=== PATIENT | female | born 1980 | race Hispanic/Latino ===

== ENCOUNTER → 2024-08-09 09:07 | Outpatient (REF) | payer SELFPAY | LOC: CLINIC 09:07 | PROVIDERS: ATTENDING PHYSICIAN Student in an Organized Health Care Education/Training Program | DX: M25.511 Pain in right shoulder (principal); M25.531 Pain in right wrist | CPT/HCPCS: 73030; 73110 ==

== ENCOUNTER 2024-09-30 11:27 | Emergency (ER) | payer SELFPAY ==
[2024-09-30 11:29] VITALS: BP 137/90
[2024-09-30 11:49] LABS: % Basophils 0.5 % (0-2); % Eosinophils 1.1 % (0-6); % Immature Granulocytes 0.2 % (0-0.5); % Lymphocytes 27.7 % (20.5-51.1); % Monocytes 5.7 % (1.7-9.3); % Neutrophils 64.8 % (42.2-75.2); Absolute Eosinophils 0.1 10^3/uL (0-0.7); Absolute Lymphocytes 1.7 10^3/uL (1.2-3.4); Absolute Monocytes 0.4 10^3/uL (0.1-0.6); Hemoglobin 13.6 g/dL (12.0-16.0); Mean Corp Hgb Conc. 34.9 g/dL (33.0-37.0); Mean Corpuscular Hgb 31.3 pg (27.0-31.0); Mean Corpuscular Volume 89.9 fL (81.0-99.0); Mean Platelet Volume 9.3 fL (7.4-10.4); Nucleated Red Blood Cells % 0 %; Platelet Count 320 10^3/uL (130-400); Red Blood Cell Count 4.34 10^6/uL (4.20-5.40); Red Cell Dist. Width 12.8 % (11.5-14.5); White Blood Cell Count 6.1 10^3/uL (4.8-10.8)
[2024-09-30 12:03] LABS: HCG, Serum Qualitative Screen Negative
[2024-09-30 12:06] LABS: ALT (SGPT) 20 U/L (0-35); AST (SGOT) 24 U/L (14-36); Albumin 4.6 g/dl (3.5-5.0); Alkaline Phosphatase 53 U/L (38-126); Blood Urea Nitrogen 13 mg/dl (7-17); Calcium 9.2 mg/dl (8.4-10.2); Carbon Dioxide 24 mmol/L (22-30); Chloride 104 mmol/L (98-107); Glucose 109 mg/dl (70-99); Potassium 4.3 mmol/L (3.5-5.1); Sodium 141 mmol/L (135-145); Total Bilirubin 0.6 mg/dl (0.2-1.3); Total Protein 7.9 g/dl (6.3-8.2); eGFR > 60.00
[2024-09-30 12:17] LABS: Troponin I < 0.012 ng/ml
--- NOTE | 2024-09-30 12:54 | ED.GENMED ---
History of Present Illness
<Mary Dow PA-C - Last Filed: 09/30/24 19:59>
General
Chief Complaint: Abdominal Symptoms
Source: patient
Exam Limitations: none
Time Seen by Provider: 09/30/24 12:52
Nursing documentation reviewed up to this point in time: agreed with
History of Present Illness
History of Present Illness:
44-year-old female with a past medical history of cholecystitis s/p cholecystectomy presents to the emergency department today with concerns of chest pain, headache, and nausea. Patient states that her most bothersome symptom currently is the
headache. Patient states that she has had a similar headache in the past and was treated at a different emergency department. Patient feels the headache in her temples bilaterally. She also notes jaw pain occasionally. She has no jaw pain with
eating. She denies visual disturbances. She states that she does not have a history of migraine disorder. She also notes that she will get intermittent abdominal discomfort when she eats certain foods. She denies fevers, chills, vomiting, diarrhea,
constipation, neck pain, dizziness, lightheadedness. She denies recent head or neck trauma. In terms of patient's chest pain, patient states that this has been going on for the past few weeks and she gets it intermittently, is not related to
exertion, is nonpleuritic, nonpositional. It will relieve without intervention. She states that she currently has it mildly in the middle of her chest. She denies history of GERD. She denies family history of cardiac disease other than high blood
pressure.
Past History
<Mary Dow PA-C - Last Filed: 09/30/24 19:59>
Past History
ED Past Medical History: Other (Kidney stones, cholelithiasis)
ED Past Surgical History: None
Social History
Tobacco: Non-smoker
Alcohol: None
Drug: None
Personal:
Living: with family
Employment: Employed
Family History
Family History: Other (Noncontributory)
Review of Systems
<Mary Dow PA-C - Last Filed: 09/30/24 19:59>
Review of Systems
All Other Systems: ROS reviewed and negative except as documented in HPI and ROS
Phy Exam
<Mary Dow PA-C - Last Filed: 09/30/24 19:59>
Physical Exam
Physical Exam:
General: Patient is well appearing and in no acute distress; non-toxic
Skin: Warm and dry, no rashes or lesions
Head: Normocephalic, atraumatic
Eyes: Sclera non-icteric. EOMs intact.
Cardiac: Regular rate and rhythm, no murmurs. No tenderness to palpation of the external chest wall.
Peripheral Vascular: No lower extremity swelling or edema
Pulm: Normal respiratory effort, no wheezes, rales, or rhonchi
Abdomen: No abdominal tenderness to palpation
Musculoskeletal: 5/5 strength in bilateral upper and lower extremities.
Neuro: CN II-XII intact, no focal neurologic deficits.
Psychiatric: Appropriate mood and affect.
Course
<Mary Dow PA-C - Last Filed: 09/30/24 19:59>
Orders/Labs/Results
Orders:
Orders
09/30/24 11:31
Electrocardiogram (*1) Urgent
Reason for Study: Chest Pain
EKG- Treatment ONCE
09/30/24 11:32
Test Result ONCE
09/30/24 11:37
C-Reactive Protein Urgent
Comment: ADD ON
Complete Blood Count/With Diff Urgent
Comprehensive Metabolic Panel Urgent
Erythrocyte Sed Rate Urgent
Comment: ADD ON
HCG, Serum Qualitative Screen Urgent
Lipase Urgent
Comment: ADD ON
Troponin I Urgent
09/30/24 13:16
Add On- LAB Urgent
Tests Added?: lipase
CR Chest - 2 Views Urgent
Comment:
Reason For Exam: chest pressure
09/30/24 13:30
Diphenhydramine [Benadryl] 12.5 mg IV NOW STA
Metoclopramide [Reglan] 10 mg IV NOW STA
09/30/24 14:45
Ketorolac [Toradol] 15 mg IV NOW STA
09/30/24 15:10
Add On- LAB Urgent
Tests Added?: ESR and CRP
Abnormal Lab Results
09/30/24
11:37
MCH 31.3 H pg
(27.0-31.0)
ESR 21 H mm/hour
(0-20)
Glucose 109 H mg/dl
(70-99)
09/30/24 11:37
09/30/24 11:37
Vital Signs
Initial and Last Documented VS:
Initial Vital Signs
Temp Pulse Resp BP Pulse Ox
97.9 F 70 16 137/90 99
09/30/24 11:29 09/30/24 11:29 09/30/24 11:29 09/30/24 11:29 09/30/24 11:29
Last Documented Vital Signs
Temp Pulse Resp BP Pulse Ox
97.9 F 63 16 94/53 97
09/30/24 11:29 09/30/24 16:30 09/30/24 16:30 09/30/24 16:00 09/30/24 16:30
<Julio Cesar Rider, DO - Last Filed: 09/30/24 15:32>
Orders/Labs/Results
Orders:
Orders
09/30/24 11:31
Electrocardiogram (*1) Urgent
Reason for Study: Chest Pain
EKG- Treatment ONCE
09/30/24 11:32
Test Result ONCE
09/30/24 11:37
C-Reactive Protein Urgent
Comment: ADD ON
Complete Blood Count/With Diff Urgent
Comprehensive Metabolic Panel Urgent
Erythrocyte Sed Rate Urgent
Comment: ADD ON
HCG, Serum Qualitative Screen Urgent
Lipase Urgent
Comment: ADD ON
Troponin I Urgent
09/30/24 13:16
Add On- LAB Urgent
Tests Added?: lipase
CR Chest - 2 Views Urgent
Comment:
Reason For Exam: chest pressure
09/30/24 13:30
Diphenhydramine [Benadryl] 12.5 mg IV NOW STA
Metoclopramide [Reglan] 10 mg IV NOW STA
09/30/24 14:45
Ketorolac [Toradol] 15 mg IV NOW STA
09/30/24 15:10
Add On- LAB Urgent
Tests Added?: ESR and CRP
Abnormal Lab Results
09/30/24
11:37
MCH 31.3 H pg
(27.0-31.0)
ESR 21 H mm/hour
(0-20)
Glucose 109 H mg/dl
(70-99)
09/30/24 11:37
09/30/24 11:37
Vital Signs
Initial and Last Documented VS:
Initial Vital Signs
Temp Pulse Resp BP Pulse Ox
97.9 F 70 16 137/90 99
09/30/24 11:29 09/30/24 11:29 09/30/24 11:29 09/30/24 11:29 09/30/24 11:29
Last Documented Vital Signs
Temp Pulse Resp BP Pulse Ox
97.9 F 63 16 94/53 97
09/30/24 11:29 09/30/24 16:30 09/30/24 16:30 09/30/24 16:00 09/30/24 16:30
<Mary Dow PA-C - Last Filed: 09/30/24 19:59>
MDM/Problems Addressed
Differential Diagnosis Includes:
ddx include tension headache, migraine headache, temporal arteritis, viral syndrome, costochondritis
MDM/Problems Addressed:
44-year-old female with a past medical history of cholecystitis s/p cholecystectomy presents to the emergency department today with concerns of chest pain, headache, and nausea. The chest pain has been going on intermittently for the past few
weeks, is nonpositional not related to exertion. She significantly history of cardiac disease, on exam, she is well-appearing, no acute distress, she has no tenderness palpation of external chest wall, she did get a chest x-ray which showed no
acute cardiopulmonary pulmonary abnormality, and her EKG shows no concerning ischemic changes. Her troponin is undetectable. Considering the length of her symptoms, no need for repeat troponin at this time. In terms of patient's headache, patient
has had similar headache in the past. She was treated here in the emergency department with Toradol, Reglan, and Benadryl which relieved her headache completely. Did consider temporal arteritis as possible diagnosis, however less likely
considering patient does not have jaw claudication, has symptoms bilaterally, and that she has non-elevated inflammatory markers. She also has no further chest pain. I advised follow-up regarding patient's past few weeks of chest pain with an
[facility] clinic which patient has been following up with, and advised return to emergency department for new or worsening symptoms, discussed return precautions. Patient stable for discharge
Chronic conditions affecting care:
HTN
<Mary Dow PA-C - Last Filed: 09/30/24 19:59>
*Pulse Oximetry
Patient hypoxic: no
*EKG
Interpreted by ED Provider?: Yes
EKG Intrepretation Date: 09/30/24
Interpretation: abnormal
Comparison EKG: no changes
Heart Rate: 57
Rate: bradycardiac
[place]: normal axis
QRS Pattern: normal QRS
*Critical Care Note
Total Time (30-74mins, 75-104mins- exclusive of procedures): Not Applicable
Data Reviewed
Review of Other/Old Records Reveals: Records (Reviewed discharge summary from 10/29/2023, patient seen for acute cholecystitis, had a cholecystectomy)
Source: patient and records
Prescriptions/Medications Considered But Not Given:
n/a
<Mary Dow PA-C - Last Filed: 09/30/24 19:59>
Patient Management
Escalation/DeEscalation of care consider admission/obs:
Admit not indicated, patient stable for discharge.
<Mary Dow PA-C - Last Filed: 09/30/24 19:59>
Update Note
Update Note:
2:41 pm-- Patient notes mild improvement in headache with reglan
ED Attending Note
<Mary Dow PA-C - Last Filed: 09/30/24 19:59>
-
Portions of this chart may have been created with voice recognition software.� Occasional wrong word or��sound alike� substitutions may have occurred due to the inherent limitations of voice recognition software.
<Julio Cesar Rider DO - Last Filed: 09/30/24 15:32>
ED Attending Note
Patient seen and examined by attending physician: Yes
I performed the substantive portion of visit, reviewed & personally made and approve the management plan that is documented in note by myself or CHIP.: Yes
I performed a history and physical exam of patient and discussed management with resident, I reviewed resident's note and agree with documented findings and plan of care.: Yes
ED Attending Note:
I evaluated the patient at bedside. The patient reports improvement after Reglan, Benadryl, and Toradol were given. She has a nonfocal neurologic examination.
Discharge Plan
Departure
Patient Disposition: Home (Routine Discharge)
Date of Disposition: 09/30/24
Time of Disposition: 16:36
Patient with high blood pressure during this ER visit?: Yes
Condition: Good
Discharge Problem:
Headache, Chest pain
Instructions: Headache, Adult ED, BLOOD PRESSURE, Chest Pain
Prescriptions:
No Action
ondansetron 4 mg tablet,disintegrating
4 mg PO QID PRN (Reason: nausea and vomiting) Qty: 20 0RF
pantoprazole [Protonix] 40 mg tablet,delayed release (DR/EC)
40 mg PO DAILY
acetaminophen [acetaminophen] 325 mg tablet
650 mg PO Q4HPRN PRN (Reason: mild pain) Qty: 1 0RF
tramadol 50 mg tablet
25 - 50 mg PO Q6HPRN PRN (Reason: severe pain/breakthrough pain) Qty: 5 0RF
ibuprofen 200 mg tablet
400 - 600 mg PO Q6HPRN PRN (Reason: moderate pain) Qty: 1 0RF
amoxicillin-pot clavulanate [amoxicillin-pot clavulanate] 875-125 mg tablet
1 tab PO Q12 Qty: 8 0RF
Referrals:
NONE,* [Family Provider] -
Activity Restrictions/Additional Instructions:
Please follow-up with the [facility] and say that you were seen here in the emergency department for chest pain for the past few weeks, please see that you had normal troponin and normal EKG as well as normal x-ray.
Please return to the emergency department should you develop an acute worsening of symptoms, dizziness, shortness of breath, return of your symptoms, intractable nausea or vomiting, seizure-like activity, numbness or tingling in your extremities,
inability to ambulate, difficulty speaking, facial droop, or any other signs or symptoms concerning to you.
Interventions
Interventions:
*Risk Screen - Suicide Last Done: 09/30/24 11:31
*General Assessment Last Done: 09/30/24 13:33
*Neglect/Abuse Screening Last Done: 09/30/24 11:31
ED- Fall Risk Assessment Last Done: 11/12/24 16:53
*ED COVID-19 Vaccine History Last Done: 09/30/24 13:33
*Nursing Disposition Last Done: 09/30/24 16:53
DG-Ipyisy-Ggdhdympnx Assessment Last Done: 09/30/24 13:33
Discharge Date and Time
Discharge Date/Time: 09/30/24 16:54
Print Language: PASHTO
[2024-09-30 13:31] VITALS: BP 105/78
[2024-09-30 13:45] LABS: Lipase 64 U/L (23-300)
[2024-09-30] MEDS: REGLAN 10 MG IV (14:00)
[2024-09-30] MEDS: BENADRYL 12.5 MG IV (14:00)
[2024-09-30 14:05] VITALS: BP 103/61
[2024-09-30 15:00] VITALS: BP 100/55
[2024-09-30] MEDS: TORADOL 15 MG IV (15:22)
[2024-09-30 15:51] LABS: Erythrocyte Sed Rate 21 mm/hour (0-20)
[2024-09-30 16:00] VITALS: BP 94/53
[2024-09-30 16:13] LABS: C-Reactive Protein < 5.00 mg/L (0.0-10.00)
== END 2024-09-30 16:54 | disposition home or self-care (01) ==
LOC: EMR 11:27
PROVIDERS: Emergency Medicine; EMERGENCY PHYSICIAN Emergency Medicine
DX: R51.9 Headache, unspecified (principal); R07.89 Other chest pain; I10 Essential (primary) hypertension; Z90.49 Acquired absence of other specified parts of digestive tract
CPT/HCPCS: 96374; 96375; 99285; 71046; 80053; 83690; 84484; 84703; 85025; 85652; 86140; 93005